=== PATIENT | female | born 2005 | race Caucasian/White ===

== ENCOUNTER 2024-12-15 14:54 | Inpatient (IN) | payer OTHER, SELFPAY ==
[2024-12-15 15:49] VITALS: BMI 38.7
[2024-12-15 15:57] VITALS: BP 136/64; PULSE 83; TEMP 36.3; O2SAT 98
--- NOTE | 2024-12-15 15:57 | PC.ADMIT ---
Jorge Luis arrived to on at 15:00 from [facility] for the treatment of an unspecified mood disorder. Precipitants of this admission include an intentional NSAID overdose: On 12/14 ~15:00 pt took ~20-24 x 250mg pills of Naproxen in an effort to end her life, after her boyfriend of 20 months accused her of cheating. When pt threatened to take all these pills her now ex boyfriend said ?I don?t care, do it? and then pt ingested the pills. A couple of hours later, pt started having nausea and vomiting, and called her best friend to bring her to the ED. In regards to the suicide attempt pt stated ?I regret it, it was stupid? and ?I want to go home, I don?t need to be in the hospital anymore?. In terms of depression and anxiety pt denies feeling depressed and/or anxious. Affect is flat. Speech is normal. Pt denies having any pain or other physical concerns. Denies current SI/HI (no ideation, no plan, no intent) and denies AH/VH. This is pt?s first inpatient psych admission and pt does not have a therapist or psychiatrist. She is currently not on any medications. Skin check completed and pt only has some bruises on R arm from an IV. Utox positive for marijuana only. Pt states she smokes week everyday but no other substances. Pt works at [employer] and lives in an apartment with her dad. No alcohol or nicotine. Pt denies a history of trauma. Pt was not willing to sign a CV so she is on a 12B. She is 14? check and group appropriate. No past medical history. No allergies. Signed ROIs for her dad, insurance, PCP, and pharmacy. Does not have a therapist or psychiatrist. Refused to get phone numbers from cell phone and wants her dad to pepper picker her cell phone.
--- NOTE | 2024-12-15 16:21 | PC.NURSE ---
Pt refused the flu shot.
--- OUTSIDE RECORDS SUMMARY | 2024-12-15 16:25 | XMS_ITS | Encounter Summary ---
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 Potassium 3.6 3.5 - 5.5 mmol/L LAB CHEMISTRY METHOD 12/15/2024 12:27 AM EDT [facility] Chloride 109 96 - 110 mmol/L LAB CHEMISTRY METHOD 12/15/2024 12:27 AM [facility] CO2 21 21 - 32 mmol/L LAB CHEMISTRY METHOD 12/15/2024 12:27 AM [facility] Anion Gap 9 3 - 11 LAB CHEMISTRY METHOD 12/15/2024 12:27 AM [facility] Glucose 112(H) 70 - 100 mg/dL LAB CHEMISTRY METHOD 12/15/2024 12:27 AM [facility] BUN 12 5 - 25 mg/dL LAB CHEMISTRY METHOD 12/15/2024 12:27 AM [facility] Creatinine 0.90 0.50 - 1.10 mg/dL LAB CHEMISTRY METHOD 12/15/2024 12:27 AM [facility] eGFR 94 >=60 mL/min/1. 73m2 LAB CHEMISTRY METHOD 12/15/2024 12:27 AM [facility] Comment:Calculation based on the??Chronic Kidney Disease Epidemiology Collaboration (CKD-EPI) equation refit??without adjustment for race. BUN/Creatinine Ratio 13.3 LAB CHEMISTRY METHOD 12/15/2024 12:27 AM [facility] Calcium 9.9 8.5 - 10.5 mg/dL LAB CHEMISTRY METHOD 12/15/2024 12:27 AM [facility] AST (SGOT) 17 10 - 42 unit/L LAB CHEMISTRY METHOD 12/15/2024 12:27 AM [facility] ALT (SGPT) 12 10 - 60 unit/L LAB CHEMISTRY METHOD 12/15/2024 12:27 AM [facility] Alkaline Phosphatase 71 42 - 121 unit/L LAB CHEMISTRY METHOD 12/15/2024 12:27 AM [facility] Total Protein 8.4(H) 6.0 - 8.0 g/dL LAB CHEMISTRY METHOD 12/15/2024 12:27 AM [facility] Albumin 4.0 3.2 - 5.0 g/dL LAB CHEMISTRY METHOD 12/15/2024 12:27 AM EDT [facility] Total Bilirubin 0.9 0.0 - 1.4 mg/dL LAB CHEMISTRY METHOD 12/15/2024 12:27 AM EDT [facility] Blood Venous blood specimen / Unknown Venipuncture / Unknown 12/14/2024 11:20 PM EDT 12/15/2024 12:00 AM EDT us Kavita BLAKELY LAB BLOOD ORDERABLES Final Resul t [facility] [address] [place] [address], documented in this encounter Visit Diagnoses Diagnosis NSAID overdose, intentional self-harm, initial encounter ([facility])- Primary documented in this encounter Administered Medications Inactive Administered Medications - up to 3 most recent administrations Medication Order MAR Action Action Date Dose Rate Site ondansetron (PF) (ZOFRAN) injection 4 mg 4 mg, intravenous, Once, On Jahaira 12/14/24 at 2303, For 1 dose Given 12/14/2024 11:29 PM EDT 4 mg sodium chloride 0.9 % bolus 1,000 mL 1,000 mL, intravenous, at 2,000 mL/hr, Administer over 30 Minutes, Once, On Jahaira 12/14/24 at 2315, For 1 dose New Bag 12/14/2024 11:30 PM EDT 1,000 mL 2000 mL/hr documented in this encounter Historical Medications * This list may reflect changes made after this encounter. 10/02, , 1 mg-20 mcg (21)/75 mg (7) per tablet Take 1 tablet by mouth 1 (one) time each day. added in this encounter Active and Recently Administered Medications Times are shown in EDT. Scheduled Medication Order 12/13/2024 12/14/2024 12/15/2024 ondansetron (PF) (ZOFRAN) injection 4 mg (COMPLETED) 4 mg, intravenous, Once, On Jahaira 12/14/24 at 2303, For 1 dose 2329 (Given - Provider: Mary Reeves RN) sodium chloride 0.9 % bolus 1,000 mL (COMPLETED) 1,000 mL, intravenous, at 2,000 mL/hr, Administer over 30 Minutes, Once, On Jahaira 12/14/24 at 2315, For 1 dose 2330 (New Bag - Provider: Mary Reeves RN) 0107 (Stopped - Provider: Mary Reeves RN) documented in this encounter Orders Diet Count Last Ordered Date First Orde red Date ADULT DIET 1 12/15/2024 Nursing Count Last Ordered Date First Orde red Date VITAL SIGNS 1 12/15/2024 Consult Count Last Ordered Date First Orde red Date IP CONSULT TO SENIOR CONTRACTS ADMINISTRATOR 1 12/15/2024 Precaution Count Last Ordered Date First Orde red Date SUICIDE PRECAUTIONS 1 12/14/2024 documented in this encounter Care Teams Respiratory Therapy Director Relationship Specialty Start Date End Date Physician, Pcp Unknown PCP - General 12/14/24 documented as of this encounter
--- OUTSIDE RECORDS SUMMARY | 2024-12-15 16:25 | XMS_ITS | Clinical Summary ---
Author Organization [facility] Address [address] [place] [address] Phone Care Team Providers Care Television Picture Tube Rebuilder Name Role Phone Physician, Pcp Unknown Primary Care Provider Niharika vailable Allergies No known active allergies Medications 10/02, 28, 1 mg-20 mcg (21)/75 mg (7) per tablet Take 1 tablet by mouth 1 (one) time each day. Active Encounters Date Type Department Care Team Description 12/14/2024 10:53 PM EDT - 12/15/2024 2:30 PM EDT Emergency [facility] Emergency [address] [place] [address] Lashell Harp MD Goebel, Mathew, MD NSAID overdose, intentional self-harm, initial encounter ([facility]) (Primary Dx) [facility]charge [facility]position: [facility] from Last 3 Months Social History Tobacco Use Types Packs/Day Years Used Date Smoking Tobacco: Never Smokeless Tobacco: Never Tobacco Cessation:Counseling Given: Not Answered Comments Unknown Sex and Gender Information Value Date Recorded Sex Assigned at Not on file Legal Sex Female 2:58 AM EST Gender Identity Not on file Sexual Orientation Not on file Obstetrics History Last Filed Vital Signs Vital Sign Reading [...] Mass Index 34.54 12/15/2024 12:45 AM EDT Plan of Treatment Health Maintenance Due Date Last Done Comments Gonorrhea/Chlamydia Screening 2004 Pneumococcal Vaccine: Pediatrics (0 to 5 Years) and At-Risk Patients (6 to 64 Years) (1 of 1 - PPSV23) 2010 02/15/2006, 03/27/2005, 01/23/2005, Additional history exists Meningococcal B Vacine (1 of 2 - Standard) 2020 Annual Well Child Visit (3-21 years old) 10/12/2023 Cholesterol Screening (Lipid Panel) 10/12/2023 Depression Screening 10/12/2023 HIV Screening 10/12/2023 Hepatitis C Screening 10/12/2023 Social Influencers of Health Screening 10/12/2023 COVID-19 Vaccine ( season) 2024 Influenza Vaccine (Season Ended) 2025 08/10/2016, 08/14/2015, 07/31/2014, Additional history exists DTaP,Tdap,and Td Vaccines (7 - Td or Tdap) 08/10/2026 08/10/2016, 11/06/2008, 02/15/2006, Additional history exists Hepatitis B Vaccines Completed 03/27/2005, 01/23/2005, 2004 HIB Vaccines Completed 02/15/2006, 03/13, 01/23/2005, Additional history exists IPV Vaccines Completed 11/06/2008, 03/13, 01/23/2005, Additional history exists MMR Vaccines Completed 11/06/2008, 10/20/2005 Varicella Vaccines Completed 11/06/2008, 10/20/2005 HPV Vaccines Completed 08/03/2017, 07/15, 09/17/2015 Meningococcal ACWY Vaccine Completed 09/03/2021, Hepatitis A Vaccines Aged Out No long er eligible based on patient's age to complete this topic RSV Immunization Patients Under 20 months Aged Out No longer eligible based on patient's age to complete this topic Procedures Procedure Name Priority Date/Time Associated Diagnosis Comments SALICYLATE LEVEL STAT 12/15/2024 3:29 AM EDT POC , URINE DIAGNOSTIC STAT 12/15/2024 1:51 AM EDT DRUG ABUSE SCREEN 8A PANEL, URINE STAT 12/15/2024 1:42 AM EDT ETHANOL Add-On 12/15/2024 1:21 AM EDT SALICYLATE LEVEL STAT 12/15/2024 1:21 AM EDT COMPREHENSIVE METABOLIC PANEL STAT 12/15/2024 1:21 AM EDT VENOUS BLOOD GAS STAT 12/15/2024 1:21 AM EDT CBC WITH AUTO DIFFERENTIAL STAT 12/14/2024 11:20 PM EDT MAGNESIUM STAT 12/14/2024 11:20 PM EDT SALICYLATE LEVEL STAT 12/14/2024 11:2 0 PM EDT ACETAMINOPHEN LEVEL STAT 12/14/2024 1 1:20 PM EDT PROTHROMBIN TIME WITH INR STAT 12/14/2024 11:20 PM EDT COMPREHENSIVE METABOLIC PANEL STAT 12/14/2024 11:20 PM EDT CBC AND DIFFERENTIAL STAT 12/14/2024 11:20 PM EDT ECG 12-LEAD Routine 12/14/2024 11:10 PM EDT from Last 3 Months Results * Salicylate level (12/15/2024 3:29 AM EDT) Only the most recent of3 resultswithin the time period is included. Salicylate Level 15.8 2.0 - 29.0 mg/dL LAB CHEMISTRY METHOD 12/15/2024 4:[address] [facility] Blood Venous blood specimen / Unknown Venipuncture / Unknown 12/15/2024 3:29 AM EDT 12/15/2024 3:52 AM EDT [facility] LAB BLOOD ORDERABLES Final Resul t [facility] [address] [place] [address], [place] [phone] * POC , urine manually resulted (12/15/2024 1:51 AM EDT) HCG, Ur POC Negative Negative Urine Urine specimen obtained by clean catch procedure / Unknown 12/15/2024 1:51 AM EDT Lashell Harp MD POINT OF CARE TEST ENTER /EDIT ORDERABLES Final Result * (ABNORMAL) Drug abuse screen 8a panel, urine (12/15/2024 1:42 AM EDT) Amphetamine Screen, Ur Negative Negative LAB CHEMISTRY METHOD 5 2:26 AM EDT [facility] Comment:Certain OTC medicati ons containing ephedrine, phenylephrine, pseudoephedrine and phenylpropanolamine can cause false positive results. Barbiturate Screen, Ur Negative Negative LAB CHEMISTRY METHOD 5 2:26 AM EDT [facility] Benzodiazepine Screen, Ur Negative Negative LAB CHEMISTRY METHOD 5 2:26 AM EDT [facility] Cocaine Screen, Ur Negative Negative LAB CHEMISTRY METHOD 5 2:26 AM EDT [facility] Opiate Screen, Ur Negative Negative LAB CHEMISTRY METHOD 5 2:26 AM [facility] Cannabinoid (THC) Screen, Ur Positive(A ) Negative LAB CHEMISTRY METHOD 5 2:26 AM T [facility] Comment:Specimens from patie nts taking pantoprazole sodium (Protonix) have been shown to produce false positive results. Oxycodone Screen, Ur Negative Negative LAB CHEMISTRY METHOD 2:26 AM EDT [facility] Fentanyl, Ur Negative Negative LAB CHEMISTRY METHOD 2:26 AM EDT [facility] Urine Urine specimen obtained by clean catch procedure / Unknown Non-blood Collection / Unknown 12/15/2024 1:42 AM EDT 12/15/2024 2:00 AM EDT Narrative [facility] - 12/15/2024 2:26 AM EDT Assay [...] MD LAB URINE ORDERABLES Fin al Result [facility] [address] [place] [address], * (ABNORMAL) Venous blood gas (12/15/2024 1:21 AM EDT) pH, Flex 7.40 7.32 - 7.42 pH 12/15/2024 1:33 AM EDT [facility] pCO2, Flex 35(L) 41 - 51 mmHg 12/15/2024 1:33 AM EDT [facility] pO2, Flex 30 25 - 40 mmHg 12/15/2024 1:33 AM EDT [facility] HCO3, Venous 21.8(L) 22.0 - 26.0 mmol/L 12/15/2024 1:33 AM EDT [facility] O2 Sat, Flex 53.8 % 12/15/2024 1:33 AM EDT [facility] Base Excess, Flex -2.6(L) -2.0 - 2.0 mmol/L 12/15/2024 1:33 AM EDT [facility] Blood Venous blood specimen / Unknown Venipuncture / Unknown 12/15/2024 1:21 AM EDT 12/15/2024 1:30 AM EDT Lashell Harp MD LAB BLOOD ORDERABLES Fin al Result Performing Organization Address [facility]/ZIP Co de Phone Number [facility] [address] [place] [address], [place] [phone] * Ethanol (12/15/2024 1:21 AM EDT) Ethanol Level <3 0 - 10 mg/dL LAB CHEMISTRY METHOD 12/15/2024 5:24 AM EDT [facility] Blood Venous blood specimen / Unknown Venipuncture / Unknown 12/15/2024 1:21 AM EDT 12/15/2024 1:30 AM EDT Lashell Harp MD LAB BLOOD ORDERABLES Fin al Result Performing Organization Address City/[facility]/ZIP Co de Phone Number [facility] [address] [place] [address], [place] [phone] * (ABNORMAL) Comprehensive metabolic panel (12/15/2024 1:21 AM EDT) Only the most recent of2 resultswithin the time period is included. Sodium 140 133 - 145 mmol/L LAB CHEMISTRY METHOD 12/15/2024 2:13 AM EDT [facility] Potassium 3.7 3.5 - 5.5 mmol/L LAB CHEMISTRY METHOD 12/15/2024 2:13 AM [facility] Chloride 112(H) 96 - 110 mmol/L LAB CHEMISTRY METHOD 12/15/2024 2:13 AM [facility] CO2 22 21 - 32 mmol/L LAB CHEMISTRY METHOD 12/15/2024 2:13 AM [facility] Anion Gap 6 3 - 11 LAB CHEMISTRY METHOD 12/15/2024 2:13 AM [facility] Glucose 104(H) 70 - 100 mg/dL LAB CHEMISTRY METHOD 12/15/2024 2:13 AM [facility] BUN 11 5 - 25 mg/dL LAB CHEMISTRY METHOD 12/15/2024 2:13 AM [facility] Creatinine 0.74 0.50 - 1.10 mg/dL LAB CHEMISTRY METHOD 12/15/2024 2:13 AM [facility] eGFR 119 >=60 mL/min/1. 73m2 LAB CHEMISTRY METHOD 12/15/2024 2:13 AM [facility] Comment:Calculation based on the??Chronic Kidney Disease Epidemiology Collaboration (CKD-EPI) equation refit??without adjustment for race. BUN/Creatinine Ratio 14.9 LAB CHEMISTRY METHOD 12/15/2024 2:13 AM [facility] Calcium 8.9 8.5 - 10.5 mg/dL LAB CHEMISTRY METHOD 12/15/2024 2:13 AM [facility] AST (SGOT) 16 10 - 42 unit/L LAB CHEMISTRY METHOD 12/15/2024 2:13 AM [facility] ALT (SGPT) 11 10 - 60 unit/L LAB CHEMISTRY METHOD 12/15/2024 2:13 AM [facility] Alkaline Phosphatase 63 42 - 121 unit/L LAB CHEMISTRY METHOD 12/15/2024 2:13 AM [facility] Total Protein 7.4 6.0 - 8.0 g/dL LAB CHEMISTRY METHOD 12/15/2024 2:13 AM [facility] Albumin 3.6 3.2 - 5.0 g/dL LAB CHEMISTRY METHOD 12/15/2024 2:13 AM [facility] Total Bilirubin 0.8 0.0 - 1.4 mg/dL LAB CHEMISTRY METHOD 12/15/2024 2:13 AM [facility] Blood Venous blood specimen / Unknown Venipuncture / Unknown 12/15/2024 1:21 AM EDT 12/15/2024 1:30 AM EDT us Kavita BLAKELY LAB BLOOD ORDERABLES Final Resul t [facility] [address] [place] [address], * (ABNORMAL) CBC auto differential (12/14/2024 11:20 PM EDT) WBC 13.5(H) 4.8 - 10.8 K/mcL LAB HEMETOLOGY METHOD 12/15/2024 12:07 AM [facility] RBC 4.40 3.80 - 4.80 M/mcL LAB HEMETOLOGY METHOD 12/15/2024 12:07 AM [facility] Hemoglobin 13.3 11.5 - 16.0 g/dL LAB HEMETOLOGY METHOD 12/15/2024 12:07 AM [facility] Hematocrit 38.4 35.0 - 47.0 % LAB HEMETOLOGY METHOD 12/15/2024 12:07 AM [facility] MCV 88.1 79.0 - 98.0 FL LAB HEMETOLOGY METHOD 12/15/2024 12:07 AM [facility] MCH 30.5 27.0 - 32.0 pcg LAB HEMETOLOGY METHOD 12/15/2024 12:07 AM [facility] MCHC 34.6 32.0 - 37.0 g/dL LAB HEMETOLOGY METHOD 12/15/2024 12:07 AM [facility] RDW 11.6 11.0 - 15.0 % LAB HEMETOLOGY METHOD 12/15/2024 12:07 AM [facility] Platelets 336 130 - 400 K/mcL LAB HEMETOLOGY METHOD 12/15/2024 12:07 AM [facility] MPV 9.4 7.0 - 11.0 FL LAB HEMETOLOGY METHOD 12/15/2024 12:07 AM [facility] NRBC 0.0 <1.0 % LAB HEMETOLOGY METHOD 12/15/2024 12:07 AM [facility] NRBC Absolute 0.00 <0.10 K/mcL LAB HEMETOLOGY METHOD 12/15/2024 12:07 AM [facility] Neutrophils Relative 86.7 % LAB HEMETOLOGY METHOD 12/15/2024 12:07 AM [facility] Lymphocytes Relative 9.3 % LAB HEMETOLOGY METHOD 12/15/2024 12:07 AM [facility] Monocytes Relative 3.5 % LAB HEMETOLOGY METHOD 12/15/2024 12:07 AM [facility] Eosinophils Relative 0.0 % LAB HEMETOLOGY METHOD 12/15/2024 12:07 AM [facility] Basophils Relative 0.1 % LAB HEMETOLOGY METHOD 12/15/2024 12:07 AM [facility] Immature Granulocytes Relative 0.4 % LAB HEMETOLOGY METHOD 12/15/2024 12:07 AM [facility] Neutrophils Absolute 11.72(H) 1.50 - 7.00 K/mcL LAB HEMETOLOGY METHOD 12/15/2024 12:07 AM EDT [facility] Lymphocytes Absolute 1.26 1.00 - 5.00 K/mcL LAB HEMETOLOGY METHOD 12/15/2024 12:07 AM EDT [facility] Monocytes Absolute 0.48 0.20 - 1.00 K/[facility] HEMETOLOGY METHOD 12/15/2024 12:07 AM EDT [facility] Eosinophils Absolute 0.00 0.00 - 0.50 K/[facility] HEMETOLOGY METHOD 12/15/2024 12:07 AM EDT [facility] Basophils Absolute 0.02 0.00 - 0.20 K/[facility] HEMETOLOGY METHOD 12/15/2024 12:07 AM EDT [facility] Immature Granulocytes Absolute 0.06(H) 0.00 - 0.03 K/[facility] HEMETOLOGY METHOD 12/15/2024 12:07 AM EDT [facility] Blood Venous blood specimen / Unknown Venipuncture / Unknown 12/14/2024 11:20 PM EDT 12/15/2024 12:00 AM EDT us Kavita BLAKELY LAB BLOOD ORDERABLES Final Resul t [facility] [address] [place] [address], * Prothrombin time with INR (12/14/2024 11:20 PM EDT) Protime 13.7 10.6 - 13.9 sec LAB COAGULATION METHOD 12/15/2024 12:16 AM EDT [facility] INR 1.1 LAB COAGULATION METHOD 12/15/2024 12:16 AM EDT [facility] Blood Venous blood specimen / Unknown Venipuncture / Unknown 12/14/2024 11:20 PM EDT 12/15/2024 12:00 AM EDT us Kavita BLAKELY LAB BLOOD ORDERABLES Final Resul t Performing Organization Address [facility]/ZIP Co de Phone Number [facility] [address] [place] [address], [place] [phone] * (ABNORMAL) Magnesium (12/14/2024 11:20 PM EDT) Magnesium 1.8(L) 1.9 - 2.6 mg/dL LAB CHEMISTRY METHOD 12/15/2024 12:26 AM EDT [facility] Blood Venous blood specimen / Unknown Venipuncture / Unknown 12/14/2024 11:20 PM EDT 12/15/2024 12:00 AM EDT us Kavita BLAKELY LAB BLOOD ORDERABLES Final Resul t Performing Organization Address [facility] de Phone Number [facility] [address] [place] [address], [place] [phone] * (ABNORMAL) Acetaminophen level (12/14/2024 11:20 PM EDT) Acetaminophen Level <2.0(L) 10.0 - 30.0 mcg/mL LAB CHEMISTRY METHOD 12/15/2024 12:26 AM EDT [facility] Blood Venous blood specimen / Unknown Venipuncture / Unknown 12/14/2024 11:20 PM EDT 12/15/2024 12:00 AM EDT us Kavita BLAKELY LAB BLOOD ORDERABLES Final Resul t Performing Organization Address [facility] Co de Phone Number [facility] [address] [place] [address], [place] [phone] from Last 3 Months Insurance [facility] MEDICAID ADVANTAGE [address] [place] [address] Care Teams Television Picture Tube Rebuilder Relationship Specialty Start Date End Date Physician, Pcp Unknown PCP - General 12/14/24
--- OUTSIDE RECORDS SUMMARY | 2024-12-15 16:25 | XMS_ITS | Continuity of Care Document ---
Author Organization [facility] Address [address] [place] [address]- Care Team Providers Care Armature Winder Helper Repair Name Role Phone Storm MOISE, Meche Skelton Primary Care Physician [phone] Encounter [facility] Date(s): 11/14/24 - 12/14/24 [facility] [address] [address]- Encounter Type: Triage Allergies, Adverse Reactions, Alerts No Known Allergies Immunizations Given and Recorded Vaccine Date Status Refusal Reason Meningococcal Conjugate Vaccine 09/03/21 Given Meningococcal Conjugate Vaccine 08/03/17 Given Human Papillomavirus Vaccine 08/03/17 Given Human Papillomavirus Vaccine 08/10/16 Given Human Papillomavirus Vaccine 1 09/17/15 Given influenza virus vaccine, inactivated 08/10/16 Give n influenza virus vaccine, inactivated 2 08/14/15 Gi selwyn influenza virus vaccine, inactivated 3 07/31/14 Gi selwyn influenza virus vaccine, inactivated 4 07/01/10 Gi selwyn tetanus/diphtheria/pertussis, acel(Tdap) 08/10/16 Given Hepatitis A Pediatric Vaccine 5 07/31/14 Given Hepatitis A Pediatric Vaccine 6 05/18/12 Given influenza virus vaccine, live 7 08/02/13 Given Poliovirus Vaccine, Inactivated 8 11/06/08 Given Poliovirus Vaccine, Inactivated 03/27/05 Given Poliovirus Vaccine, Inactivated 01/23/05 Given Poliovirus Vaccine, Inactivated 04 Given Varicella Virus Vaccine 9 11/06/08 Given Varicella Virus Vaccine 10/20/05 Given Measles/Mumps/Rubella Virus Vaccine 10 11/06/08 Gi selwyn Measles/Mumps/Rubella Virus Vaccine 10/20/05 Given Diphth/Pertussis,Acel/Tetanus (oldterm) 11 11/06/08 Given Influenza Vaccine (oldterm) 12 09/14/08 Given Influenza Vaccine (oldterm) 10/20/05 Given Influenza Inactive (IM) (oldterm) 13 10/11/06 Give n Pneumococcal Conjugate (PCV7) (oldterm) 02/15/06 G iven Pneumococcal Conjugate (PCV7) (oldterm) 03/27/05 G iven Pneumococcal Conjugate (PCV7) (oldterm) 01/23/05 G iven Pneumococcal Conjugate (PCV7) (oldterm) 04 G iven Haemophilus B Conj Vaccine (oldterm) 02/15/06 Give n Haemophilus B Conj Vaccine (oldterm) 03/27/05 Give n Haemophilus B Conj Vaccine (oldterm) 01/23/05 Give n Haemophilus B Conj Vaccine (oldterm) 04 Give n Diphth-Tetanus Toxoids Adsorbed(oldterm) 02/15/06 Given Diphth-Tetanus Toxoids Adsorbed(oldterm) 03/27/05 Given Diphth-Tetanus Toxoids Adsorbed(oldterm) 01/23/05 Given Diphth-Tetanus Toxoids Adsorbed(oldterm) 04 Given Hepatitis B Vaccine (old term) 03/27/05 Given Hepatitis B Vaccine (old term) 01/23/05 Given Hepatitis B Vaccine (old term) 04 Given 1Result Comment: [09/17/2015] ORDERED BY DR. INMAN 2Result Comment: [08/14/2015] ORDERED BY MARIA TERESA OWUSU MD 3Result Comment: [07/31/2014] ordered by Meche Inman MD 4Admin Note: RACHEL-RN 5Result Comment: [07/31/2014] ordered by Meche Inman MD 6Admin Note: VIS 12/01/05 7Result Comment: [08/02/2013] Ordered by Valery Ambrose MD 8Admin Note: VIS GIVEN 9Admin Note: VIS 11/24/07 GIVEN 10Admin Note: VIS 11/24/07 GIVEN 11Admin Note: VIS 03/13 12Admin Note: VIS 04/05/08 GIVEN 13[place] Note: [place] [id number] Medications 10/02 oral tablet 1 tablet, By Mouth, Daily, # 84 tablet, 2 Refills, Maintenance, 11/15/24 10:14:00 AM EST, [facility], 84, TAKE 1 TABLET BY MOUTH DAILY AT THE SAME TIME EVERY DAY., 158.5, cm, 06/09/23 15:35:00 EDT, Height, 88.63, kg, 04/22/23 10:26:00 EDT, Dry Weight Start Date: 11/15/24 Status: Ordered Quantity: 84.0 Unit: tablet Repeat number: 1 MiraLax oral powder for reconstitution = 17 Gm, By Mouth, Daily, PRN as needed forhard stools/constipation, (dissolve in water or juice), # 255 Gm, 5 Refills, Maintenance, 06/09/23 4:21:00 PM EDT, [facility]/pharmacy #[id number], Partial fill upon patient request if the prescription is for a schedule II opioid drug., 17 Gm By Mouth Daily,PRN:as needed forhard stools/constipation,Instr:(dissolve in water or juice), 158.5, cm, 06/09/23 15:35:00 EDT, Height, 88.63, kg, 04/22/23 10:26:00 EDT, Dry Weight Start Date: 06/09/23 Status: Ordered Quantity: 255.0 Unit: g Repeat number: 6 Problem List Condition Confirmation Course Effective Dates Status Health [facility] Informant Asthma Confirmed 02/27/09 Active Obesity Confirmed 2007 Active Wart Confirmed Active Healthy adolescent on routine physical examination Confirmed Active Well child Confirmed 04 Active Social History Social History Type Response Smoking Status Never (less than 100 in lifetime) entered on: 11/24/19 Sex Sex Representation Female (finding) Patient Care team information Care Team Personnel Name: Meche Inman MD Position: [facility] Physician - Primary Care Member Role: PCP Address: [address] [place] [address] Telecom: Care Team Related Persons Name: VIKKI LIN Name: JAMES CONRAD Name: JAMES CONRAD Insurance Providers Guarantor name: JAMES CONRAD Health Plan Information #: 1 Payer: [employer] Member Number: NA Policy Number: NA Group Number: [id number]
[2024-12-15 20:00] VITALS: BP 134/71; PULSE 90; RESP 16; TEMP 36.6; O2SAT 98
[2024-12-15 20:14] LABS: Alanine Aminotransferase 11 U/L (0-31); Albumin Level 4.5 g/dL (3.5-5.0); Alkaline Phosphatase 65 U/L (39-117); Anion Gap 13 (12-20); Aspartate Amino Transferase 20 U/L (5-31); Bilirubin Total 0.9 mg/dL (0.0-1.0); Blood Urea Nitrogen 8 mg/dL (9-16); Calcium 9.4 mg/dL (8.4-10.2); Carbon Dioxide 23 mmol/L (22-29); Chloride 108 mmol/L (96-108); Estimated Glomerular Filt Rate > 60; Glucose Random 95 mg/dL (60-115); Potassium 3.4 mmol/L (3.3-5.1); Sodium 141 mmol/L (135-145); Total Protein 8.1 g/dL (6.5-8.0)
[2024-12-16 07:44] VITALS: BP 100/74; PULSE 84; TEMP 36.2; O2SAT 95
[2024-12-16 08:53] LABS: Estimated Average Glucose 97 mg/dL; Hemoglobin A1C 108.4023 umol/L; Total Hemoglobin (HGBA1C) 3449.4446 umol/L
[2024-12-16 09:08] LABS: Cholesterol 168 mg/dL (<200); HDL Cholesterol 54 mg/dL (>40); LDL Cholesterol Calculated 102 mg/dL (<100); Triglycerides 61 mg/dL (<150)
[2024-12-16 09:23] LABS: TSH reflex Free T4 0.55 uIU/mL (0.32-4.0)
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
[2024-12-16 20:00] VITALS: BP 126/83; PULSE 66; RESP 16; TEMP 36.7; O2SAT 100
[2024-12-17 08:00] VITALS: BP 119/56; PULSE 67; RESP 16; TEMP 36.2; O2SAT 96
[2024-12-17] MEDS: Acetaminophen 325 MG TABLET 650 MG PO ×2 (09:25→22:46)
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
[2024-12-17 20:00] VITALS: BP 135/85; PULSE 104; RESP 16; TEMP 36.5; O2SAT 100
[2024-12-18 08:00] VITALS: BP 101/56; PULSE 66; TEMP 37; O2SAT 100
[2024-12-18] MEDS: Acetaminophen 325 MG TABLET 650 MG PO (08:14)
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
[2024-12-18] MEDS: Ibuprofen 600 MG TABLET PO (13:33)
== END 2024-12-18 14:09 | disposition home or self-care (01) | DRG 755 ==
PROVIDERS: Admitting Provider Psychiatry & Neurology Psychiatry; Visit Provider Psychiatry & Neurology Psychiatry
DX: F43.25 Adjustment disorder with mixed disturbance of emotions and conduct (principal); F43.10 Post-traumatic stress disorder, unspecified
CPT/HCPCS: 36415; 80053; 80061; 83036; 84443

== ENCOUNTER → 2024-12-15 14:54 | Outpatient (BNV) | payer OTHER, SELFPAY | PROVIDERS: Admitting Provider Psychiatry & Neurology Psychiatry; Visit Provider Psychiatry & Neurology Psychiatry | DX: F43.25 Adjustment disorder with mixed disturbance of emotions and conduct (principal); F43.10 Post-traumatic stress disorder, unspecified | CPT/HCPCS: 99232 ==